=== PATIENT | female | born 1955 | race African-American/Black ===

== ENCOUNTER 2020-12-30 14:58 | Inpatient (IN) ==
[2020-12-30] MEDS: 0.9 % Sodium Chloride 1,000 ML IVC SCH ×2 (15:55→21:32)
[2020-12-30 16:21] LABS: Basophils # 0.1 K/mcL (0.0-0.2); Basophils % 1.2 %; Eosinophils # 0.6 K/mcL (0.0-0.6); Hematocrit 34.9 % (35.3-44.9); Hemoglobin 11.2 g/dL (11.5-15.4); Immature Granulocytes % 0.3 % (0-4); Lymphocytes # 1.2 K/mcL (0.6-4.6); Mean Corpuscular HGB Conc 32.1 g/dL (31.6-35.5); Mean Corpuscular Hemoglobin 26.4 pg (28.0-33.3); Mean Corpuscular Volume 82.3 fL (83.0-100.0); Monocytes # 0.6 K/mcL (0.0-1.3); Neutrophils # 4.1 K/mcL (1.6-8.9); Platelet Count 432 K/mcL (140-400); Red Blood Count 4.24 M/mcL (3.82-4.97); Red Cell Distribution Width 16.2 % (11.5-14.5); Segmented Neutrophils % 62.5 %; White Blood Count 6.5 K/mcL (4.3-11.1)
[2020-12-30 16:33] LABS: Prothrombin Time 11.6 Seconds (9.4-12.1)
[2020-12-30 16:36] LABS: Activated Partial Thrombo Time 40.5 Seconds (26.0-36.0)
[2020-12-30 16:37] LABS: Alanine Aminotransferase 7 Units/L (7-52); Albumin 3.7 g/dL (3.5-5.7); Albumin/Globulin Ratio 1.5 (1.1-2.2); Alkaline Phosphatase 61 Units/L (34-104); Aspartate Amino Transferase 9 Units/L (13-39); BUN/Creatinine Ratio 17 (6-26); Bilirubin,Total 0.3 mg/dL (0.3-1.0); Blood Urea Nitrogen 16 mg/dL (8-23); Calcium 9.1 mg/dL (8.6-10.3); Carbon Dioxide 29 mEq/L (23-29); Chloride 104 mEq/L (98-107); Globulin 2.5 g/dL (2.4-3.5); Glucose 78 mg/dL (70-105); Osmolality,Calculated 288 (280-300); Potassium 4.2 mEq/L (3.5-5.1); Sodium 139 mEq/L (136-145); Total Protein 6.2 g/dL (6.4-8.9); eGFR For African Americans > 60 (> 60); eGFR For Non-African Americans > 60 (> 60)
[2020-12-30] MEDS ORDERED: CeFAZolin 2,000 MG/120 ML BAG IVPB ONE (17:21)
[2020-12-30] MEDS ORDERED: Heparin 1,000 UNITS/500 mL 500 ML ONE (17:54)
[2020-12-30] MEDS ORDERED: *HR* FentaNYL (PF) 100 MCG/2 ML VIAL IVP PRN (18:02)
[2020-12-30] MEDS ORDERED: Albuterol 2.5 MG/3 ML NEBULIZER IH PRN (18:02)
[2020-12-30] MEDS ORDERED: Ondansetron 4 MG/2 ML VIAL IVP PRN (18:02)
[2020-12-30] MEDS ORDERED: *HR* OxyCODONE Immed Rel 5 MG TABLET PO PRN (18:02)
[2020-12-30] MEDS ORDERED: *HR* Midazolam HCl 5 MG/5 ML VIAL IVP ONE (18:06)
[2020-12-30] MEDS ORDERED: Ondansetron 4 MG/2 ML VIAL ONE (18:06)
[2020-12-30] MEDS ORDERED: *HR* FentaNYL (PF) 250 MCG/5 ML VIAL ONE (18:06)
[2020-12-30] MEDS ORDERED: *HR* Rocuronium Bromide 50 MG/5 ML VIAL ONE (18:06)
[2020-12-30] MEDS ORDERED: *HR* Etomidate 20 MG/10 ML AMPUL IVP ONE (18:06)
[2020-12-30] MEDS ORDERED: Lidocaine 2% Syringe 100 MG/5 ML ONE (18:09)
[2020-12-30] MEDS ORDERED: NiCARdipine 2.5 MG/10 ML Syringe IVPB ONE (18:35)
[2020-12-30] MEDS ORDERED: *HR* Propofol 200 MG/20 ML VIAL IVP ONE (18:40)
[2020-12-30] MEDS ORDERED: *HR* Labetalol 100 MG/20 ML MDV ONE (19:00)
[2020-12-30] MEDS ORDERED: Naloxone 0.4 MG/ML INJ IVP PRN (19:25)
[2020-12-30 21:23] LABS: Basophils # 0.1 K/mcL (0.0-0.2); Basophils % 0.8 %; Eosinophils # 0.4 K/mcL (0.0-0.6); Eosinophils % 3.1 %; Hematocrit 35.4 % (35.3-44.9); Hemoglobin 11.4 g/dL (11.5-15.4); Immature Granulocytes % 0.8 % (0-4); Lymphocytes # 0.5 K/mcL (0.6-4.6); Lymphocytes % 4.2 %; Mean Corpuscular HGB Conc 32.2 g/dL (31.6-35.5); Mean Corpuscular Hemoglobin 26.6 pg (28.0-33.3); Mean Corpuscular Volume 82.7 fL (83.0-100.0); Mean Platelet Volume 8.4 fL (9.4-12.4); Monocytes # 0.2 K/mcL (0.0-1.3); Monocytes % 2.1 %; Neutrophils # 10.2 K/mcL (1.6-8.9); Platelet Count 377 K/mcL (140-400); Red Blood Count 4.28 M/mcL (3.82-4.97); Red Cell Distribution Width 16.4 % (11.5-14.5)
[2020-12-30 21:29] LABS: White Blood Count 11.4 K/mcL (4.3-11.1)
[2020-12-30] MEDS ORDERED: cloNIDine HCL 0.1 MG TABLET PO ONE (22:20)
[2020-12-30] MEDS ORDERED: DilTIAZem CD (24hr) 240 MG CAP.ER.24H PO ONE (22:21)
[2020-12-30] MEDS ORDERED: hydrALAZINE 25 MG TABLET PO ONE (22:22)
[2020-12-30] MEDS ORDERED: Gabapentin 400 MG CAPSULE PO ONE (22:22)
[2020-12-30] MEDS: CeFAZolin 2 GM/120 ML BAG IVPB SCH (23:05)
[2020-12-31] MEDS: *HR* OxyCODONE/APAP 5/325 TABLET PO PRN ×3 (00:08→21:32)
[2020-12-31] MEDS ORDERED: *HR* Metoprolol 5 MG/5 ML VIAL IVP ONE (00:51)
[2020-12-31] MEDS ORDERED: Dextrose Gel 15 GM/37.5 ML TUBE PO PRN ×2 (03:41)
[2020-12-31] MEDS ORDERED: D5% in Water 1,000 ML IVC PRN (03:41)
[2020-12-31] MEDS ORDERED: *HR* Dextrose 50 % in Water (Syg) 50 ML SYRINGE IVP PRN (03:41)
[2020-12-31 04:13] LABS: Basophils % 0.2 %; Eosinophils % 0.1 %; Hematocrit 37.5 % (35.3-44.9); Hemoglobin 11.6 g/dL (11.5-15.4); Immature Granulocytes % 0.6 % (0-4); Lymphocytes # 0.4 K/mcL (0.6-4.6); Lymphocytes % 3.1 %; Mean Corpuscular HGB Conc 30.9 g/dL (31.6-35.5); Mean Corpuscular Hemoglobin 25.9 pg (28.0-33.3); Mean Corpuscular Volume 83.7 fL (83.0-100.0); Mean Platelet Volume 8.6 fL (9.4-12.4); Monocytes # 1.3 K/mcL (0.0-1.3); Monocytes % 9.5 %; Neutrophils # 11.8 K/mcL (1.6-8.9); Platelet Count 386 K/mcL (140-400); Red Blood Count 4.48 M/mcL (3.82-4.97); Red Cell Distribution Width 16.1 % (11.5-14.5); Segmented Neutrophils % 86.5 %; White Blood Count 13.7 K/mcL (4.3-11.1)
[2020-12-31 04:20] LABS: BUN/Creatinine Ratio 19 (6-26); Blood Urea Nitrogen 19 mg/dL (8-23); Calcium 8.5 mg/dL (8.6-10.3); Carbon Dioxide 25 mEq/L (23-29); Chloride 106 mEq/L (98-107); Glucose 220 mg/dL (70-105); Magnesium 1.6 mg/dL (1.6-2.6); Osmolality,Calculated 277 (280-300); Phosphorous 5.7 mg/dL (2.7-4.5); Potassium 4.6 mEq/L (3.5-5.1); Sodium 129 mEq/L (136-145); eGFR For African Americans > 60 (> 60); eGFR For Non-African Americans 57 (> 60)
[2020-12-31] MEDS: Insulin LISPRO 300 UNITS/3 ML VIAL SUBQ SCH ×3 (08:37→17:20)
[2020-12-31] MEDS: CeFAZolin 2 GM/120 ML BAG IVPB SCH (08:38)
[2020-12-31 09:11] LABS: BUN/Creatinine Ratio 19 (6-26); Blood Urea Nitrogen 20 mg/dL (8-23); Calcium 8.7 mg/dL (8.6-10.3); Carbon Dioxide 29 mEq/L (23-29); Chloride 102 mEq/L (98-107); Glucose 155 mg/dL (70-105); Osmolality,Calculated 288 (280-300); Potassium 4.5 mEq/L (3.5-5.1); Sodium 136 mEq/L (136-145); eGFR For African Americans > 60 (> 60); eGFR For Non-African Americans 54 (> 60)
[2020-12-31] MEDS: Gabapentin 400 MG CAPSULE PO SCH ×3 (11:16→21:25)
[2020-12-31] MEDS ORDERED: Insulin LISPRO 300 UNITS/3 ML VIAL SUBQ SCH (12:00)
[2020-12-31] MEDS ORDERED: Albuterol 2.5 MG/3 ML NEBULIZER IH PRN (14:05)
[2020-12-31 14:21] LABS: INR 1.1; Prothrombin Time 12.7 Seconds (9.4-12.1)
[2020-12-31] MEDS: hydrALAZINE 25 MG TABLET PO SCH ×2 (15:18→21:24)
[2020-12-31] MEDS: Aspirin Enteric Coated 81 MG Tablet PO SCH (15:18)
[2020-12-31] MEDS: DilTIAZem CD (24hr) 240 MG CAP.ER.24H PO SCH (15:18)
[2020-12-31] MEDS: BuPROPion SR (12 HR) 150 MG TABLET PO SCH ×2 (15:18→21:27)
[2020-12-31] MEDS: Budesonide/Formoterol 160/4.5 1 PUFF INH IH SCH (21:07)
[2020-12-31] MEDS: cloNIDine HCL 0.1 MG TABLET PO SCH (21:23)
[2020-12-31] MEDS: Mirtazapine 15 MG TABLET PO SCH (21:25)
[2020-12-31] MEDS: Cholecalciferol (D-3) 1,000 UNIT (25MCG) TABLET PO SCH (21:27)
[2020-12-31] MEDS: Perphenazine 8 MG TABLET PO SCH (21:28)
[2021-01-01 03:08] LABS: Basophils % 0.4 %; Eosinophils # 0.3 K/mcL (0.0-0.6); Eosinophils % 3.1 %; Hematocrit 34.9 % (35.3-44.9); Hemoglobin 11.5 g/dL (11.5-15.4); Immature Granulocytes % 0.3 % (0-4); Lymphocytes # 1.1 K/mcL (0.6-4.6); Lymphocytes % 10.6 %; Mean Corpuscular Volume 81.9 fL (83.0-100.0); Mean Platelet Volume 8.6 fL (9.4-12.4); Monocytes # 1.5 K/mcL (0.0-1.3); Monocytes % 14.5 %; Neutrophils # 7.5 K/mcL (1.6-8.9); Platelet Count 357 K/mcL (140-400); Red Blood Count 4.26 M/mcL (3.82-4.97); Red Cell Distribution Width 16.3 % (11.5-14.5); Segmented Neutrophils % 71.1 %; White Blood Count 10.5 K/mcL (4.3-11.1)
[2021-01-01 03:25] LABS: BUN/Creatinine Ratio 17 (6-26); Blood Urea Nitrogen 16 mg/dL (8-23); Calcium 8.7 mg/dL (8.6-10.3); Carbon Dioxide 28 mEq/L (23-29); Chloride 102 mEq/L (98-107); Glucose 137 mg/dL (70-105); Osmolality,Calculated 285 (280-300); Potassium 4.1 mEq/L (3.5-5.1); Sodium 136 mEq/L (136-145); eGFR For African Americans > 60 (> 60); eGFR For Non-African Americans > 60 (> 60)
[2021-01-01] MEDS: *HR* OxyCODONE/APAP 5/325 TABLET PO PRN ×4 (05:44→20:11)
[2021-01-01] MEDS: Insulin LISPRO 300 UNITS/3 ML VIAL SUBQ SCH ×3 (07:27→17:17)
[2021-01-01] MEDS: Gabapentin 400 MG CAPSULE PO SCH ×3 (07:40→20:11)
[2021-01-01] MEDS: Aspirin Enteric Coated 81 MG Tablet PO SCH (07:41)
[2021-01-01] MEDS: Cholecalciferol (D-3) 1,000 UNIT (25MCG) TABLET PO SCH ×2 (07:41→20:12)
[2021-01-01] MEDS: hydrALAZINE 25 MG TABLET PO SCH ×3 (07:42→20:12)
[2021-01-01] MEDS: Mirtazapine 15 MG TABLET PO SCH ×2 (07:42→20:11)
[2021-01-01] MEDS: Losartan/HCTZ 50-12.5 TABLET PO SCH (07:42)
[2021-01-01] MEDS: Cyanocobalamin (B-12) 1,000 MCG TABLET PO SCH (07:42)
[2021-01-01] MEDS: DilTIAZem CD (24hr) 240 MG CAP.ER.24H PO SCH (07:43)
[2021-01-01] MEDS: BuPROPion SR (12 HR) 150 MG TABLET PO SCH ×2 (07:44→20:12)
[2021-01-01] MEDS: Isosorbide MONOnitrate (24 HR) 30 MG TAB.ER.24H PO SCH (07:44)
[2021-01-01] MEDS: Budesonide/Formoterol 160/4.5 1 PUFF INH IH SCH ×2 (07:50→23:01)
[2021-01-01] MEDS ORDERED: Isosorbide MONOnitrate (24 HR) 60 MG TAB.ER.24H PO SCH (09:00)
[2021-01-01] MEDS: Levalbuterol Neb 1.25 MG/3 ML IH SCH ×3 (11:10→20:07)
[2021-01-01] MEDS: Ipratropium/Albuterol Neb 3 ML IH SCH ×3 (11:11→23:01)
[2021-01-01] MEDS: Perphenazine 8 MG TABLET PO SCH (20:12)
[2021-01-01] MEDS: cloNIDine HCL 0.1 MG TABLET PO SCH (20:12)
[2021-01-02] MEDS: *HR* OxyCODONE/APAP 5/325 TABLET PO PRN ×5 (01:42→21:45)
[2021-01-02] MEDS: Levalbuterol Neb 1.25 MG/3 ML IH SCH ×4 (03:42→22:18)
[2021-01-02] MEDS: Ipratropium/Albuterol Neb 3 ML IH SCH ×3 (03:44→15:21)
[2021-01-02 06:15] LABS: Basophils # 0.1 K/mcL (0.0-0.2); Basophils % 0.6 %; Eosinophils # 0.5 K/mcL (0.0-0.6); Eosinophils % 6.1 %; Hemoglobin 10.9 g/dL (11.5-15.4); Immature Granulocytes % 0.6 % (0-4); Lymphocytes # 0.9 K/mcL (0.6-4.6); Lymphocytes % 10.3 %; Mean Corpuscular HGB Conc 31.1 g/dL (31.6-35.5); Mean Corpuscular Hemoglobin 25.9 pg (28.0-33.3); Mean Corpuscular Volume 83.1 fL (83.0-100.0); Mean Platelet Volume 8.5 fL (9.4-12.4); Monocytes # 1.1 K/mcL (0.0-1.3); Monocytes % 12.5 %; Neutrophils # 6.1 K/mcL (1.6-8.9); Platelet Count 340 K/mcL (140-400); Red Blood Count 4.21 M/mcL (3.82-4.97); Segmented Neutrophils % 69.9 %; White Blood Count 8.7 K/mcL (4.3-11.1)
[2021-01-02 06:33] LABS: BUN/Creatinine Ratio 15 (6-26); Blood Urea Nitrogen 12 mg/dL (8-23); Carbon Dioxide 30 mEq/L (23-29); Chloride 101 mEq/L (98-107); Glucose 124 mg/dL (70-105); Osmolality,Calculated 283 (280-300); Sodium 136 mEq/L (136-145); eGFR For African Americans > 60 (> 60); eGFR For Non-African Americans > 60 (> 60)
[2021-01-02] MEDS: Losartan/HCTZ 50-12.5 TABLET PO SCH (07:27)
[2021-01-02] MEDS: Mirtazapine 15 MG TABLET PO SCH ×2 (07:28→20:44)
[2021-01-02] MEDS: Gabapentin 400 MG CAPSULE PO SCH ×3 (07:29→20:44)
[2021-01-02] MEDS: Cholecalciferol (D-3) 1,000 UNIT (25MCG) TABLET PO SCH ×2 (07:29→20:45)
[2021-01-02] MEDS: DilTIAZem CD (24hr) 240 MG CAP.ER.24H PO SCH (07:29)
[2021-01-02] MEDS: Cyanocobalamin (B-12) 1,000 MCG TABLET PO SCH (07:29)
[2021-01-02] MEDS: BuPROPion SR (12 HR) 150 MG TABLET PO SCH ×2 (07:29→20:43)
[2021-01-02] MEDS: Isosorbide MONOnitrate (24 HR) 30 MG TAB.ER.24H PO SCH (07:30)
[2021-01-02] MEDS: Aspirin Enteric Coated 81 MG Tablet PO SCH (07:30)
[2021-01-02] MEDS: hydrALAZINE 25 MG TABLET PO SCH ×3 (07:30→20:43)
[2021-01-02] MEDS: Insulin LISPRO 300 UNITS/3 ML VIAL SUBQ SCH ×3 (07:30→17:30)
[2021-01-02] MEDS: Budesonide/Formoterol 160/4.5 1 PUFF INH IH SCH (10:10)
[2021-01-02 10:35] LABS: Albumin 3.3 g/dL (3.5-5.7)
[2021-01-02] MEDS: Colchicine 0.6 MG TABLET PO SCH (17:27)
[2021-01-02] MEDS: Perphenazine 8 MG TABLET PO SCH (20:43)
[2021-01-02] MEDS: Sennosides/Docusate Sodium TABLET PO SCH (20:43)
[2021-01-02] MEDS: cloNIDine HCL 0.1 MG TABLET PO SCH (20:44)
[2021-01-03] MEDS: Budesonide/Formoterol 160/4.5 1 PUFF INH IH SCH ×2 (00:03→11:35)
[2021-01-03] MEDS: Ipratropium/Albuterol Neb 3 ML IH SCH ×4 (00:03→16:01)
[2021-01-03] MEDS: Levalbuterol Neb 1.25 MG/3 ML IH SCH ×3 (03:48→16:01)
[2021-01-03] MEDS: *HR* OxyCODONE/APAP 5/325 TABLET PO PRN ×3 (04:04→12:45)
[2021-01-03 05:02] LABS: Basophils # 0.1 K/mcL (0.0-0.2); Basophils % 0.7 %; Eosinophils # 0.5 K/mcL (0.0-0.6); Eosinophils % 5.1 %; Hemoglobin 10.6 g/dL (11.5-15.4); Immature Granulocytes % 0.4 % (0-4); Lymphocytes # 0.6 K/mcL (0.6-4.6); Lymphocytes % 6.7 %; Mean Corpuscular HGB Conc 33.1 g/dL (31.6-35.5); Mean Corpuscular Hemoglobin 26.9 pg (28.0-33.3); Mean Corpuscular Volume 81.2 fL (83.0-100.0); Mean Platelet Volume 8.8 fL (9.4-12.4); Monocytes # 0.9 K/mcL (0.0-1.3); Monocytes % 10.4 %; Neutrophils # 6.9 K/mcL (1.6-8.9); Platelet Count 347 K/mcL (140-400); Red Blood Count 3.94 M/mcL (3.82-4.97); Red Cell Distribution Width 15.7 % (11.5-14.5); Segmented Neutrophils % 76.7 %
[2021-01-03 05:13] LABS: BUN/Creatinine Ratio 17 (6-26); Blood Urea Nitrogen 13 mg/dL (8-23); Calcium 8.8 mg/dL (8.6-10.3); Carbon Dioxide 30 mEq/L (23-29); Chloride 99 mEq/L (98-107); Glucose 149 mg/dL (70-105); Osmolality,Calculated 285 (280-300); Potassium 3.9 mEq/L (3.5-5.1); Sodium 136 mEq/L (136-145); eGFR For African Americans > 60 (> 60); eGFR For Non-African Americans > 60 (> 60)
[2021-01-03 05:14] LABS: Complement C3 118 mg/dL (87-200)
[2021-01-03] MEDS: Insulin LISPRO 300 UNITS/3 ML VIAL SUBQ SCH ×2 (07:55→12:01)
[2021-01-03] MEDS: Colchicine 0.6 MG TABLET PO SCH (08:12)
[2021-01-03] MEDS: BuPROPion SR (12 HR) 150 MG TABLET PO SCH (08:12)
[2021-01-03] MEDS: DilTIAZem CD (24hr) 240 MG CAP.ER.24H PO SCH (08:12)
[2021-01-03] MEDS: Losartan/HCTZ 50-12.5 TABLET PO SCH (08:13)
[2021-01-03] MEDS: Gabapentin 400 MG CAPSULE PO SCH ×2 (08:13→16:10)
[2021-01-03] MEDS: Mirtazapine 15 MG TABLET PO SCH (08:13)
[2021-01-03] MEDS: Cholecalciferol (D-3) 1,000 UNIT (25MCG) TABLET PO SCH (08:13)
[2021-01-03] MEDS: Isosorbide MONOnitrate (24 HR) 30 MG TAB.ER.24H PO SCH (08:13)
[2021-01-03] MEDS: hydrALAZINE 25 MG TABLET PO SCH ×2 (08:13→16:10)
[2021-01-03] MEDS: Sennosides/Docusate Sodium TABLET PO SCH (08:14)
[2021-01-03] MEDS: Aspirin Enteric Coated 81 MG Tablet PO SCH (08:14)
[2021-01-03] MEDS: Cyanocobalamin (B-12) 1,000 MCG TABLET PO SCH (08:14)
[2021-01-03] MEDS ORDERED: Insulin LISPRO 300 UNITS/3 ML VIAL SUBQ SCH (14:01)
[2021-01-03] MEDS ORDERED: FLU Vac QV 21-22 (6Month+)/PF 0.5 ML SYRINGE IM ONE (15:21)
[2021-01-03 16:06] VITALS: BP 145/82; PULSE 80; TEMP 98.2; O2SAT 92
[2021-01-06 09:51] LABS: ANA IgG by ELISA NONE DETECTED (None Detected)
[2021-01-08 21:04] LABS: ANCA IFA Titer <1:20 (<1:20)
[2021-01-09 10:28] LABS: ANCA IFA Pattern NONE DETECTED (None Detected); Serine Protease-3 Antibody 0 AU/mL (0-19)
== END 2021-01-03 16:20 | disposition home health service (06) | DRG 272 ==
LOC: 2NNU 14:58 → EMEROOARM 14:58 → 2NNU 17:55 → SUATTDRO 20:01 → 3ANU 01-02 21:13
PROVIDERS: ADMIT Internal Medicine; ATTEND Internal Medicine

== ENCOUNTER 2021-05-14 13:11 | Inpatient (IN) ==
[2021-05-14] MEDS ORDERED: Ondansetron ODT 4 MG TAB.RAPDIS SL PRN (17:34)
[2021-05-14] MEDS ORDERED: Naloxone 0.4 MG/ML INJ IVP PRN (17:34)
[2021-05-14] MEDS ORDERED: Acetaminophen 325 MG TABLET PO PRN (17:34)
[2021-05-14] MEDS ORDERED: Melatonin 3 MG TABLET PO PRN (17:34)
[2021-05-14] MEDS ORDERED: *HR* HYDROcodone/Acet 5/325 mg TABLET PO PRN (17:34)
[2021-05-14] MEDS ORDERED: D5% in Water 1,000 ML IVC PRN (17:35)
[2021-05-14] MEDS ORDERED: *HR* Dextrose 50 % in Water (Syg) 50 ML SYRINGE IVP PRN (17:35)
[2021-05-14] MEDS ORDERED: Dextrose 4 GM Chewable Tablets PO PRN ×2 (17:35)
[2021-05-14] MEDS ORDERED: Isovue-370 500 ML BOTTLE IVP ONE (17:37)
[2021-05-14 18:37] LABS: Estimated Average Glucose 114 mg/dl; Hemoglobin A1C 5.6 %
[2021-05-14] MEDS ORDERED: Ipratropium/Albuterol Neb 3 ML ONE (19:49)
[2021-05-14] MEDS: Budesonide/Formoterol 160/4.5 1 PUFF INH IH SCH (20:05)
[2021-05-14] MEDS: Ipratropium/Albuterol Neb 3 ML IH SCH (20:05)
[2021-05-14] MEDS: Insulin LISPRO 300 UNITS/3 ML VIAL SUBQ SCH (20:33)
[2021-05-14] MEDS: *HR* Heparin 5,000 UNIT/ML VIAL SQ SCH (20:38)
[2021-05-14] MEDS: Gabapentin 300 MG CAPSULE PO SCH (20:38)
[2021-05-14] MEDS: BuPROPion SR (12 HR) 150 MG TABLET PO SCH (20:38)
[2021-05-14] MEDS: Sennosides/Docusate Sodium TABLET PO SCH (20:38)
[2021-05-14] MEDS: hydrALAZINE 25 MG TABLET PO SCH (20:38)
[2021-05-14] MEDS: cloNIDine HCL 0.1 MG TABLET PO SCH (20:38)
[2021-05-14] MEDS: Mirtazapine 15 MG TABLET PO SCH (21:57)
[2021-05-15] MEDS: MethylPREDNISolone 40 MG/ML VIAL IVP SCH ×3 (00:18→16:05)
[2021-05-15 01:27] LABS: Basophils % 0.3 %; Eosinophils # 0.1 K/mcL (0.0-0.6); Eosinophils % 0.6 %; Hematocrit 29.8 % (35.3-44.9); Hemoglobin 9.3 g/dL (11.5-15.4); Immature Granulocytes % 0.5 % (0-4); Lymphocytes # 1.1 K/mcL (0.6-4.6); Lymphocytes % 9.2 %; Mean Corpuscular HGB Conc 31.2 g/dL (31.6-35.5); Mean Corpuscular Hemoglobin 24.6 pg (28.0-33.3); Mean Corpuscular Volume 78.8 fL (83.0-100.0); Mean Platelet Volume 8.8 fL (9.4-12.4); Monocytes # 0.8 K/mcL (0.0-1.3); Monocytes % 6.5 %; Neutrophils # 9.7 K/mcL (1.6-8.9); Platelet Count 312 K/mcL (140-400); Red Blood Count 3.78 M/mcL (3.82-4.97); Red Cell Distribution Width 19.2 % (11.5-14.5); Segmented Neutrophils % 82.9 %; White Blood Count 11.7 K/mcL (4.3-11.1)
[2021-05-15 01:43] LABS: BUN/Creatinine Ratio 22 (6-26); Blood Urea Nitrogen 20 mg/dL (8-23); Calcium 8.7 mg/dL (8.6-10.3); Carbon Dioxide 27 mEq/L (23-29); Chloride 106 mEq/L (98-107); Glucose 83 mg/dL (70-105); INR 1.2; Osmolality,Calculated 290 (280-300); Potassium 3.8 mEq/L (3.5-5.1); Prothrombin Time 13.4 Seconds (9.4-12.1); Sodium 139 mEq/L (136-145); eGFR For African Americans > 60 (> 60); eGFR For Non-African Americans > 60 (> 60)
[2021-05-15] MEDS: Ipratropium/Albuterol Neb 3 ML IH SCH ×4 (03:41→21:33)
[2021-05-15] MEDS: *HR* Heparin 5,000 UNIT/ML VIAL SQ SCH ×3 (04:25→23:10)
[2021-05-15] MEDS: Budesonide/Formoterol 160/4.5 1 PUFF INH IH SCH ×2 (07:30→21:33)
[2021-05-15] MEDS: Aspirin Enteric Coated 81 MG Tablet PO SCH (08:19)
[2021-05-15] MEDS: Gabapentin 300 MG CAPSULE PO SCH ×3 (08:19→19:57)
[2021-05-15] MEDS: Losartan/HCTZ 50-12.5 TABLET PO SCH (08:19)
[2021-05-15] MEDS: BuPROPion SR (12 HR) 150 MG TABLET PO SCH ×2 (08:19→19:56)
[2021-05-15] MEDS: Sennosides/Docusate Sodium TABLET PO SCH ×2 (08:20→19:58)
[2021-05-15] MEDS: DilTIAZem CD (24hr) 240 MG CAP.ER.24H PO SCH (08:20)
[2021-05-15] MEDS: Insulin LISPRO 300 UNITS/3 ML VIAL SUBQ SCH ×4 (08:21→19:55)
[2021-05-15] MEDS: hydrALAZINE 25 MG TABLET PO SCH ×3 (08:23→19:57)
[2021-05-15] MEDS: Isosorbide MONOnitrate (24 HR) 30 MG TAB.ER.24H PO SCH (08:23)
[2021-05-15] MEDS ORDERED: Vancomycin 1,250 MG/262.5 ML IV.SOLN IVPB ONE (11:46)
[2021-05-15] MEDS: Piperacillin/Tazobactam 3.375 GM in 0.9 % Sodium Chloride Mini Bag 100 ML IVPB SCH ×2 (12:41→19:58)
[2021-05-15] MEDS: cloNIDine HCL 0.1 MG TABLET PO SCH (19:56)
[2021-05-15] MEDS: Mirtazapine 15 MG TABLET PO SCH (19:57)
[2021-05-16] MEDS: Vancomycin 1,250 MG/262.5 ML IV.SOLN IVPB SCH ×2 (00:15→14:30)
[2021-05-16] MEDS: MethylPREDNISolone 40 MG/ML VIAL IVP SCH ×3 (00:15→16:30)
[2021-05-16 01:12] LABS: Hematocrit 28.9 % (35.3-44.9); Hemoglobin 8.9 g/dL (11.5-15.4); Immature Granulocytes % 1.1 % (0-4); Lymphocytes # 0.4 K/mcL (0.6-4.6); Lymphocytes % 4.2 %; Mean Corpuscular HGB Conc 30.8 g/dL (31.6-35.5); Mean Corpuscular Hemoglobin 24.3 pg (28.0-33.3); Mean Corpuscular Volume 78.7 fL (83.0-100.0); Mean Platelet Volume 9.1 fL (9.4-12.4); Monocytes # 0.6 K/mcL (0.0-1.3); Neutrophils # 8.4 K/mcL (1.6-8.9); Platelet Count 344 K/mcL (140-400); Red Blood Count 3.67 M/mcL (3.82-4.97); Red Cell Distribution Width 19.3 % (11.5-14.5); Segmented Neutrophils % 88.7 %; White Blood Count 9.5 K/mcL (4.3-11.1)
[2021-05-16 01:20] LABS: INR 1.1; Prothrombin Time 11.7 Seconds (9.4-12.1)
[2021-05-16 03:03] LABS: BUN/Creatinine Ratio 28 (6-26); Blood Urea Nitrogen 30 mg/dL (8-23); Carbon Dioxide 26 mEq/L (23-29); Chloride 105 mEq/L (98-107); Glucose 223 mg/dL (70-105); Osmolality,Calculated 295 (280-300); Potassium 4.6 mEq/L (3.5-5.1); Sodium 136 mEq/L (136-145); eGFR For African Americans > 60 (> 60); eGFR For Non-African Americans 52 (> 60)
[2021-05-16] MEDS: Ipratropium/Albuterol Neb 3 ML IH SCH ×4 (04:02→22:52)
[2021-05-16] MEDS: Piperacillin/Tazobactam 3.375 GM in 0.9 % Sodium Chloride Mini Bag 100 ML IVPB SCH ×3 (05:07→20:58)
[2021-05-16] MEDS: *HR* Heparin 5,000 UNIT/ML VIAL SQ SCH ×3 (05:08→21:00)
[2021-05-16] MEDS: Insulin LISPRO 300 UNITS/3 ML VIAL SUBQ SCH ×4 (07:27→21:00)
[2021-05-16] MEDS ORDERED: *HR* FentaNYL (PF) 100 MCG/2 ML VIAL ONE (07:31)
[2021-05-16] MEDS ORDERED: *HR* Midazolam HCl 2 MG/2 ML VIAL ONE (07:31)
[2021-05-16] MEDS ORDERED: *HR* Propofol 200 MG/20 ML VIAL IVP ONE (07:31)
[2021-05-16] MEDS ORDERED: Famotidine 20 MG/2 ML VIAL IVP ONE (07:32)
[2021-05-16] MEDS ORDERED: Acetaminophen IV 1,000 MG/100 ML BAG IVPB ONE ×2 (07:32→07:37)
[2021-05-16] MEDS ORDERED: Lidocaine -MPF 4% 5 ML AMPUL ONE (07:40)
[2021-05-16] MEDS ORDERED: Ondansetron 4 MG/2 ML VIAL ONE (07:40)
[2021-05-16] MEDS ORDERED: Lidocaine -MPF 2% 5 ML VIAL ONE (07:40)
[2021-05-16] MEDS ORDERED: *HR* Succinylcholine 200 MG/10 ML VIAL IVP ONE (07:40)
[2021-05-16] MEDS: Aspirin Enteric Coated 81 MG Tablet PO SCH (07:42)
[2021-05-16] MEDS: BuPROPion SR (12 HR) 150 MG TABLET PO SCH ×2 (07:42→21:00)
[2021-05-16] MEDS: Gabapentin 300 MG CAPSULE PO SCH ×3 (07:43→21:00)
[2021-05-16] MEDS: Isosorbide MONOnitrate (24 HR) 30 MG TAB.ER.24H PO SCH (07:43)
[2021-05-16] MEDS: Sennosides/Docusate Sodium TABLET PO SCH ×2 (07:43→21:00)
[2021-05-16] MEDS: Losartan/HCTZ 50-12.5 TABLET PO SCH (07:43)
[2021-05-16] MEDS: hydrALAZINE 25 MG TABLET PO SCH ×3 (07:43→21:00)
[2021-05-16] MEDS: DilTIAZem CD (24hr) 240 MG CAP.ER.24H PO SCH (07:43)
[2021-05-16] MEDS: Budesonide/Formoterol 160/4.5 1 PUFF INH IH SCH ×2 (10:56→22:52)
[2021-05-16 15:02] LABS: Appearance of Body Fluid Cloudy (Clear); Volume of Body Fluid 16 mL
[2021-05-16 15:09] LABS: Appearance of Body Fluid Cloudy (Clear)
[2021-05-16 15:10] LABS: Volume of Body Fluid 16 mL
[2021-05-16] MEDS: cloNIDine HCL 0.1 MG TABLET PO SCH (20:59)
[2021-05-16] MEDS: Mirtazapine 15 MG TABLET PO SCH (21:00)
[2021-05-17] MEDS: Vancomycin 1,250 MG/262.5 ML IV.SOLN IVPB SCH ×2 (01:06→12:22)
[2021-05-17] MEDS: MethylPREDNISolone 40 MG/ML VIAL IVP SCH ×4 (01:06→23:18)
[2021-05-17] MEDS: Ipratropium/Albuterol Neb 3 ML IH SCH ×4 (04:10→20:29)
[2021-05-17] MEDS: *HR* Heparin 5,000 UNIT/ML VIAL SQ SCH ×3 (05:02→21:12)
[2021-05-17] MEDS: Piperacillin/Tazobactam 3.375 GM in 0.9 % Sodium Chloride Mini Bag 100 ML IVPB SCH ×3 (05:03→21:11)
[2021-05-17 06:43] LABS: Basophils % 0.1 %; Hematocrit 32.1 % (35.3-44.9); Hemoglobin 9.9 g/dL (11.5-15.4); Immature Granulocytes % 1.6 % (0-4); Lymphocytes # 0.3 K/mcL (0.6-4.6); Lymphocytes % 3.4 %; Mean Corpuscular HGB Conc 30.8 g/dL (31.6-35.5); Mean Corpuscular Hemoglobin 24.8 pg (28.0-33.3); Mean Corpuscular Volume 80.5 fL (83.0-100.0); Monocytes # 0.5 K/mcL (0.0-1.3); Monocytes % 4.9 %; Neutrophils # 8.4 K/mcL (1.6-8.9); Nucleated Red Blood Cells 0.3 /100 WBC (0); Platelet Count 377 K/mcL (140-400); Red Blood Count 3.99 M/mcL (3.82-4.97); Red Cell Distribution Width 19.3 % (11.5-14.5); White Blood Count 9.3 K/mcL (4.3-11.1)
[2021-05-17 07:06] LABS: BUN/Creatinine Ratio 28 (6-26); Blood Urea Nitrogen 31 mg/dL (8-23); Calcium 9.3 mg/dL (8.6-10.3); Carbon Dioxide 28 mEq/L (23-29); Chloride 103 mEq/L (98-107); Glucose 234 mg/dL (70-105); Osmolality,Calculated 294 (280-300); Potassium 4.9 mEq/L (3.5-5.1); Sodium 135 mEq/L (136-145); eGFR For African Americans > 60 (> 60); eGFR For Non-African Americans 51 (> 60)
[2021-05-17] MEDS: Sennosides/Docusate Sodium TABLET PO SCH ×2 (07:34→21:13)
[2021-05-17] MEDS: Isosorbide MONOnitrate (24 HR) 30 MG TAB.ER.24H PO SCH (07:34)
[2021-05-17] MEDS: Aspirin Enteric Coated 81 MG Tablet PO SCH (07:34)
[2021-05-17] MEDS: Gabapentin 300 MG CAPSULE PO SCH ×3 (07:34→21:13)
[2021-05-17] MEDS: hydrALAZINE 25 MG TABLET PO SCH ×3 (07:34→21:14)
[2021-05-17] MEDS: Losartan/HCTZ 50-12.5 TABLET PO SCH (07:34)
[2021-05-17] MEDS: DilTIAZem CD (24hr) 240 MG CAP.ER.24H PO SCH (07:34)
[2021-05-17] MEDS: BuPROPion SR (12 HR) 150 MG TABLET PO SCH ×2 (07:35→21:14)
[2021-05-17] MEDS: Insulin LISPRO 300 UNITS/3 ML VIAL SUBQ SCH ×4 (07:35→21:12)
[2021-05-17] MEDS: Budesonide/Formoterol 160/4.5 1 PUFF INH IH SCH ×2 (11:15→20:29)
[2021-05-17] MEDS: Acetylcysteine 10% 2 ML INHSOL IH SCH ×4 (11:17→20:29)
[2021-05-17] MEDS: Mirtazapine 15 MG TABLET PO SCH (21:13)
[2021-05-17] MEDS: cloNIDine HCL 0.1 MG TABLET PO SCH (21:13)
[2021-05-18] MEDS: Vancomycin 1,250 MG/262.5 ML IV.SOLN IVPB SCH ×2 (01:32→14:18)
[2021-05-18 02:10] LABS: Basophils % 0.3 %; Hematocrit 31.9 % (35.3-44.9); Hemoglobin 9.6 g/dL (11.5-15.4); Immature Granulocytes % 3.3 % (0-4); Lymphocytes # 0.3 K/mcL (0.6-4.6); Lymphocytes % 3.7 %; Mean Corpuscular HGB Conc 30.1 g/dL (31.6-35.5); Mean Corpuscular Hemoglobin 23.9 pg (28.0-33.3); Mean Corpuscular Volume 79.6 fL (83.0-100.0); Mean Platelet Volume 9.4 fL (9.4-12.4); Monocytes # 0.3 K/mcL (0.0-1.3); Monocytes % 4.4 %; Neutrophils # 6.5 K/mcL (1.6-8.9); Nucleated Red Blood Cells 0.5 /100 WBC (0); Platelet Count 410 K/mcL (140-400); Red Blood Count 4.01 M/mcL (3.82-4.97); Red Cell Distribution Width 18.6 % (11.5-14.5); Segmented Neutrophils % 88.3 %; White Blood Count 7.3 K/mcL (4.3-11.1)
[2021-05-18 02:28] LABS: Calcium 8.8 mg/dL (8.6-10.3); Potassium 4.5 mEq/L (3.5-5.1)
[2021-05-18] MEDS: Piperacillin/Tazobactam 3.375 GM in 0.9 % Sodium Chloride Mini Bag 100 ML IVPB SCH ×3 (03:18→20:54)
[2021-05-18] MEDS: Ipratropium/Albuterol Neb 3 ML IH SCH ×4 (03:53→19:36)
[2021-05-18] MEDS: Acetylcysteine 10% 2 ML INHSOL IH SCH ×2 (03:53→07:49)
[2021-05-18] MEDS: *HR* Heparin 5,000 UNIT/ML VIAL SQ SCH ×3 (05:07→21:05)
[2021-05-18] MEDS: hydrALAZINE 25 MG TABLET PO SCH ×3 (05:08→21:04)
[2021-05-18] MEDS: Budesonide/Formoterol 160/4.5 1 PUFF INH IH SCH ×2 (07:50→19:37)
[2021-05-18] MEDS: Losartan/HCTZ 50-12.5 TABLET PO SCH (08:40)
[2021-05-18] MEDS: Isosorbide MONOnitrate (24 HR) 30 MG TAB.ER.24H PO SCH (08:40)
[2021-05-18] MEDS: BuPROPion SR (12 HR) 150 MG TABLET PO SCH ×2 (08:40→20:53)
[2021-05-18] MEDS: DilTIAZem CD (24hr) 240 MG CAP.ER.24H PO SCH (08:41)
[2021-05-18] MEDS: Gabapentin 300 MG CAPSULE PO SCH ×3 (08:41→21:04)
[2021-05-18] MEDS: Sennosides/Docusate Sodium TABLET PO SCH ×2 (08:41→20:53)
[2021-05-18] MEDS: predniSONE 20 MG TABLET PO SCH (08:41)
[2021-05-18] MEDS: Aspirin Enteric Coated 81 MG Tablet PO SCH (08:41)
[2021-05-18] MEDS: Insulin LISPRO 300 UNITS/3 ML VIAL SUBQ SCH ×4 (08:42→21:12)
[2021-05-18] MEDS: Mirtazapine 15 MG TABLET PO SCH (20:53)
[2021-05-18] MEDS: cloNIDine HCL 0.1 MG TABLET PO SCH (20:53)
[2021-05-18] MEDS ORDERED: Perphenazine 8 MG TABLET PO SCH (21:00)
[2021-05-19 01:43] LABS: Basophils % 0.4 %; Eosinophils % 0.2 %; Hematocrit 31.2 % (35.3-44.9); Hemoglobin 9.6 g/dL (11.5-15.4); Immature Granulocytes % 3.8 % (0-4); Lymphocytes # 1.2 K/mcL (0.6-4.6); Lymphocytes % 12.5 %; Mean Corpuscular HGB Conc 30.8 g/dL (31.6-35.5); Mean Corpuscular Hemoglobin 24.2 pg (28.0-33.3); Mean Corpuscular Volume 78.6 fL (83.0-100.0); Mean Platelet Volume 8.9 fL (9.4-12.4); Monocytes # 1.2 K/mcL (0.0-1.3); Monocytes % 12.9 %; Neutrophils # 6.4 K/mcL (1.6-8.9); Nucleated Red Blood Cells 0.4 /100 WBC (0); Platelet Count 382 K/mcL (140-400); Red Blood Count 3.97 M/mcL (3.82-4.97); Red Cell Distribution Width 18.5 % (11.5-14.5); Segmented Neutrophils % 70.2 %; White Blood Count 9.2 K/mcL (4.3-11.1)
[2021-05-19 01:54] LABS: Calcium 8.8 mg/dL (8.6-10.3); Potassium 3.8 mEq/L (3.5-5.1)
[2021-05-19] MEDS: Ipratropium/Albuterol Neb 3 ML IH SCH ×2 (03:41→09:57)
[2021-05-19] MEDS: Piperacillin/Tazobactam 3.375 GM in 0.9 % Sodium Chloride Mini Bag 100 ML IVPB SCH (04:13)
[2021-05-19] MEDS: *HR* Heparin 5,000 UNIT/ML VIAL SQ SCH (06:34)
[2021-05-19] MEDS ORDERED: NON-FORMULARY MEDICATION 1 EACH EACH (Atorvastatin Calcium [Lipitor] 20 MG Tablet) PO SCH (09:00)
[2021-05-19] MEDS: Isosorbide MONOnitrate (24 HR) 30 MG TAB.ER.24H PO SCH (09:01)
[2021-05-19] MEDS: predniSONE 20 MG TABLET PO SCH (09:01)
[2021-05-19] MEDS: Losartan/HCTZ 50-12.5 TABLET PO SCH (09:01)
[2021-05-19] MEDS: hydrALAZINE 25 MG TABLET PO SCH (09:01)
[2021-05-19] MEDS: Gabapentin 300 MG CAPSULE PO SCH (09:02)
[2021-05-19] MEDS: Sennosides/Docusate Sodium TABLET PO SCH (09:02)
[2021-05-19] MEDS: Insulin LISPRO 300 UNITS/3 ML VIAL SUBQ SCH (09:02)
[2021-05-19] MEDS: BuPROPion SR (12 HR) 150 MG TABLET PO SCH (09:02)
[2021-05-19] MEDS: DilTIAZem CD (24hr) 240 MG CAP.ER.24H PO SCH (09:02)
[2021-05-19] MEDS: Aspirin Enteric Coated 81 MG Tablet PO SCH (09:02)
[2021-05-19] MEDS: Budesonide/Formoterol 160/4.5 1 PUFF INH IH SCH (09:57)
[2021-05-19 10:00] VITALS: O2SAT 94
[2021-05-19 10:39] VITALS: BP 167/84; PULSE 79; TEMP 98.1
== END 2021-05-19 11:45 | disposition home or self-care (01) | DRG 871 ==
LOC: 2ANU → SUATTDRO 21:47
PROVIDERS: ADMIT Student in an Organized Health Care Education/Training Program; ATTEND Internal Medicine